=== PATIENT | female | born 1985 | race African-American/Black ===

== ENCOUNTER 2019-07-01 15:35 | Emergency (ER) | payer MEDICAID, OTHER ==
[~2019-07-01] VITALS: Ht 175.3 cm; Wt 93.0 kg
[2019-07-01 16:44] VITALS: BP 124/86
[2019-07-01] MEDS ORDERED: cefTRIAXone SOD 1,000 MG VL IM ONE (17:15)
[2019-07-01] MEDS ORDERED: KETOROLAC TROMETH 60MG/2ML VIAL IM ONE (17:15)
== END 2019-07-01 18:03 | disposition home or self-care (01) ==
LOC: ER 15:35
DX: J03.90 Acute tonsillitis, unspecified (principal); N39.0 Urinary tract infection, site not specified
CPT/HCPCS: 81002; 96372; 99283; J0696; J1885